=== PATIENT | male | born 1945 ===

== ENCOUNTER 2024-11-27 14:46 | Outpatient (CLI) | payer MEDICARE ==
--- NOTE | 2024-11-27 15:39 | RADIOLOGY REPORT ---
CLINICAL HISTORY: MEMORY LOSS TECHNIQUE: Routine multiplanar imaging of the brain was performed without gadolinium contrast. COMPARISON: None FINDINGS: There is no abnormal restricted diffusion to suggest acute infarction. There is mild brain volume loss. Few T2 hyperintense lesions within the right cerebral white matter a re of doubtful clinical significance. There is no evidence for acute ischemic changes, mass, mass effect, or extra-axial fluid collection. There is no hydrocephalus or midline shift. The cerebral sulci and subarachnoid cisterns are not effa sam. The imaged paranasal sinuses mild scattered mucoperiosteal technique. The globes are intact. The midl ine structures, including the corpus callosum, are unremarkable. The intracranial flow voids are maintained. IMPRESSION: No acute intracranial abnormality seen. No evidence for acute infarct. Mild brain volume loss.
== END 2024-11-27 23:59 | disposition home or self-care (01) ==
LOC: MRI02 14:46
PROVIDERS: ATTEND Neuromusculoskeletal Medicine & OMM
DX: R41.3 Other amnesia (principal)
CPT/HCPCS: 70551